=== PATIENT | male | born 1975 | race Caucasian/White ===

== ENCOUNTER 2017-08-29 20:51 | Emergency (ER) | payer OTHER ==
[~2017-08-29] VITALS: Ht 170.2 cm; Wt 97.5 kg
[~2017-08-29 20:51] MED LIST: TOPAMAX100 MG PO
[2017-08-29 20:52] VITALS: BP 130/74
[2017-08-29] MEDS ORDERED: FIORICET 50-301 EAC1 PO (23:18)
== END 2017-08-29 23:40 | disposition home or self-care (01) ==
LOC: RME 20:51 → EME 20:51 → RME 23:40
DX: S06.0X0A Concussion without loss of consciousness, initial encounter (principal); H93.13 Tinnitus, bilateral; W22.8XXA Striking against or struck by other objects, initial encounter; Y93.89 Activity, other specified; Y92.008 Other place in unspecified non-institutional (private) residence as the place of occurrence of the external cause; F17.200 Nicotine dependence, unspecified, uncomplicated; Z88.8 Allergy status to other drugs, medicaments and biological substances
CPT/HCPCS: 70450; 99281; 99284

== ENCOUNTER 2017-09-01 12:02 | Emergency (ER) | payer OTHER ==
[~2017-09-01] VITALS: Ht 170.2 cm; Wt 99.9 kg
[~2017-09-01 12:02] MED LIST changes: +FIORICET 50-301 EAC1 PO
[2017-09-01] MEDS ORDERED: ZOFRAN4 MG PO (14:46)
[2017-09-01 15:02] VITALS: BP 128/64
== END 2017-09-01 15:03 | disposition home or self-care (01) ==
LOC: EME 12:02
DX: F07.81 Postconcussional syndrome (principal); Z88.8 Allergy status to other drugs, medicaments and biological substances
CPT/HCPCS: 70450; 99281; 99283; J1885